=== PATIENT | male | born 2005 | race Caucasian/White ===

== ENCOUNTER 2023-01-05 23:27 | Emergency (ER) | payer BC ==
[2023-01-06 00:18] LABS: Absolute Lymphocytes (CBC) 3.1 K/uL (0.7-4.9); Hematocrit 42.4 % (39.6-49.0); Lymphocytes % 40.5 % (15.3-44.8); MCV 88.8 fL (80-100); MPV 8.8 fL (7.6-11.3); Platelets 166 thou/uL (152-406); RBC Red Blood Cell Count 4.77 M/uL (4.33-5.43)
[2023-01-06 00:38] LABS: ALT/SGPT 36 U/L (16-61); AST/SGOT 17 U/L (15-37); Albumin 3.9 g/dL (3.4-5.0); Alkaline Phosphatase 78 U/L (45-117); BUN Blood Urea Nitrogen 16 mg/dL (7-18); Bicarbonate 28 mEq/L (21-32); Bilirubin Total 0.2 mg/dL (0.2-1.0); Glomerular Filtration Rate 117 ml/min (=/>90); Glucose Level 99 mg/dL (74-106); NT PRO-BNP 18 pg/mL (<125); Potassium 3.7 mEq/L (3.5-5.1); Protein, Total 6.8 g/dL (6.4-8.2); Sodium Level 142 mEq/L (136-145); Troponin High Sensitivity 4.2 pg/mL (<58.9)
[2023-01-06 00:42] LABS: Bilirubin Direct < 0.1 mg/dL (0-0.2); Bilirubin Indirect, Calculated ND mg/dL (0.2-0.8)
--- NOTE | 2023-01-06 01:52 | ER ---
Nurse's Notes [facility] Name: Armen Randhawa Age: 17 yrs Sex: Male : 2005 Arrival Date: 01/05/2023 Time: 23:27 Bed 9 Private MD: Diagnosis: Chest pain, unspecified Presentation: 01/05 23:35 Chief complaint: Patient states: bilateral lower chest wall pain of 7 with SOB,onset pf1 2200. Patient stated was lying down with onset of symptoms. Coronavirus screen: Vaccine status: Patient reports being unvaccinated. Client denies travel out of the [place] in the last 14 days. Client presents with at least one sign or symptom that may indicate coronavirus-19. Ebola Screen: Patient negative for fever greater than or equal to 101.5 degrees Fahrenheit, and additional compatible Ebola Virus Disease symptoms. Initial Sepsis Screen: Does the patient meet any 2 criteria? No. Patient's initial sepsis screen is negative. Does the patient have a suspected source of infection? No. Patient's initial sepsis screen is negative. Risk Assessment: Do you want to hurt yourself or someone else? Patient reports no desire to harm self or others. 23:35 Method Of Arrival: Ambulatory pf1 23:35 Acuity: MELINA 3 pf1 23:36 Note Patient stated is currently taking Clindamycin 300mg for finger infection since pf1 Monday. Historical: - Allergies: 23:42 No Known Allergies; pf1 - PMHx: 23:42 None; pf1 - PSHx: 23:42 Tonsillectomy; Adenoid excision; right arm surgery; pf1 - Immunization history:: Adult Immunizations up to date, Client reports having NOT received the Covid vaccine. Last tetanus immunization: < 5 years ago Flu vaccine is up to date. - Social history:: Smoking status: Patient denies any tobacco usage or history of. Patient/guardian denies using alcohol, street drugs. - Family history:: not pertinent. - Hospitalizations: : No recent hospitalization is reported. Screenin/15 00:00 [facility] ED Fall Risk Assessment (Adult) History of falling in the last 3 months, pf1 including since admission No falls in past 3 months (0 pts) Confusion or Disorientation No (0 pts) Intoxicated or Sedated No (0 pts) Impaired Gait No (0 pts) Mobility Assist Device Used No (0 pt) Altered Elimination No (0 pt) Score/Fall Risk Level 0 - 2 = Low Risk Oriented to surroundings, Maintained a safe environment, Educated pt \T\ family on fall prevention, incl call for assistance when getting out of bed, Assessed \T\ reinforced patient's understanding of fall precautions, Provided non-skid footwear, Hourly rounding (assess needs \T\ fall precautionary measures) done, Used ambulatory aids as needed (educated on \T\ assisted with), Used gait belt as appropriate. Abuse screen: Denies threats or abuse. Nutritional screening: No deficits noted. Tuberculosis screening: No symptoms or risk factors identified. Assessment: 01/05 23:55 General: Appears in no apparent distress. comfortable, well groomed, well developed, pf1 Behavior is calm, cooperative, appropriate for age, quiet. 23:55 Pain: Complains of pain in chest Pain currently is 7 out of 10 on a pain scale. Pain pf1 began 2 hours ago. Also complains of shortness of breath. Neuro: No deficits noted. Level of Consciousness is awake, alert, obeys commands, Oriented to person, place, time, situation. Cardiovascular: Reports chest pain, shortness of breath. Respiratory: No deficits noted. Airway is patent Respiratory effort is even, unlabored, Respiratory pattern is regular, symmetrical. GI: No deficits noted. No signs and/or symptoms were reported involving the gastrointestinal system. : No deficits noted. No signs and/or symptoms were reported regarding the genitourinary system. EENT: No deficits noted. No signs and/or symptoms were reported regarding the EENT system. 23:55 Respiratory: Breath sounds are clear bilaterally. pf1 01/06 01:00 Reassessment: Patient appears in no apparent distress at this time. Patient and/or pf1 family updated on plan of care and expected duration. Pain level reassessed. Patient is alert, oriented x 3, equal unlabored respirations, skin warm/dry/pink. Patient states symptoms have improved. 02:00 Reassessment: Patient appears in no apparent distress at this time. Patient and/or pf1 family updated on plan of care and expected duration. Pain level reassessed. Patient is alert, oriented x 3, equal unlabored respirations, skin warm/dry/pink. Patient states feeling better. Patient states symptoms have improved. Vital Signs: 01/05 23:35 BP 133 / 73; Pulse 68; Resp 18; Temp 98.2; Pulse Ox 99% on R/A; Weight 95.25 kg; Height pf1 6 ft. 2 in. ; Pain 7/10; 01/06 00:54 BP 117 / 62; Pulse 64; Resp 18 S; Pulse Ox 100% on R/A; pf1 02:00 BP 118 / 64; Pulse 74; Resp 16; Pulse Ox 99% on R/A; Pain 0/10; pf1 01/05 23:35 Body Mass Index 26.96 (95.25 kg, 187.96 cm) pf1 01/05 23:35 Pain Scale: Adult pf1 02:00 Pain Scale: Adult pf1 ED Course: 01/05 23:29 Patient arrived in ED. jj6 23:42 Triage completed. pf1 23:43 Sudarshan Nur MD is Attending Physician. rn 23:55 Patient has correct armband on for positive identification. Bed in low position. Call pf1 light in reach. 23:55 Client placed on continuous cardiac and pulse oximetry monitoring. NIBP monitoring pf1 applied. environmental monitoring technician on. 23:55 Arm band placed on right wrist. pf1 01/06 00:00 Inserted saline lock: 20 gauge in right antecubital area, using aseptic technique. kb3 00:00 No provider procedures requiring assistance completed. Patient maintains SpO2 kb3 saturation greater than 95% on room air. 00:08 Basic Metabolic Panel Sent. kb3 00:08 CBC with Diff Sent. kb3 00:09 D-Dimer Sent. kb3 00:09 LFT's Sent. kb3 00:09 Troponin HS Sent. kb3 01:12 XRAY Chest (1 view) In Process Unspecified. EDMS 02:10 IV discontinued, intact, bleeding controlled, No redness/swelling at site. Pressure pf1 dressing applied. 02:10 Provided Education on: follow up and chest pain education. pf1 Administered Medications: No medications were administered Medication: 02:00 VIS not applicable for this client. pf1 Outcome: 01:52 Discharge ordered by . rn 02:10 Discharged to home ambulatory. pf1 02:10 Condition: improved 02:10 Discharge instructions given to patient, Instructed on discharge instructions, follow up and referral plans. Demonstrated understanding of instructions, follow-up care. 02:22 Patient left the ED. pf1 Signatures: Dispatcher [employer] Sudarshan Freitas MD MD rn Mónica [id number] Harriett Musa RN RN kb3 Sierra Mercado RN RN pf1 Corrections: (The following items were deleted from the chart) 02:18 01/05 23:55 Cardiovascular: Reports chest pain, shortness of breath, pf1 pf1
--- NOTE | 2023-01-06 01:53 | EDPHYS ---
Physician Documentation [facility] Name: Armen Randhawa Age: 17 yrs Sex: Male : 2005 Arrival Date: 01/05/2023 Time: 23:27 Bed 9 Private MD: ED Physician Sudarshan Nur HPI: 01/06 00:03 This 17 yrs old Male presents to ER via Ambulatory with complaints of Chest Pain, rn Shortness Of Breath. 00:03 The patient or guardian reports chest pain that is located primarily in the anterior rn chest wall, bilaterally. The pain does not radiate. Associated signs and symptoms: Pertinent positives: shortness of breath, Pertinent negatives: abdominal pain, cough, diaphoresis, palpitations, syncope, vomiting. The chest pain is described as sharp, squeezing, stabbing. Duration: The patient or guardian reports multiple episodes, that are intermittent. Modifying factors: The symptoms are alleviated by nothing. the symptoms are aggravated by deep breath. Severity of pain: At its worst the pain was moderate in the emergency department the pain has resolved. The patient has not experienced similar symptoms in the past. Patient reports chest pain to bilateral anterior lower rib area, happened at rest, no recent illness or trauma. No fever. No cough. Reports sharp stabbing and squeezing pain when taking a deep breath. Currently denies any pain or shortness of breath. Resolved upon arrival. Denies smoking or vaping. No abdominal pain or vomiting. No family history of early cardiac disease.. Historical: - Allergies: 01/05 23:42 No Known Allergies; pf1 - PMHx: 23:42 None; pf1 - PSHx: 23:42 Tonsillectomy; Adenoid excision; right arm surgery; pf1 - Immunization history:: Adult Immunizations up to date, Client reports having NOT received the Covid vaccine. Last tetanus immunization: < 5 years ago Flu vaccine is up to date. - Social history:: Smoking status: Patient denies any tobacco usage or history of. Patient/guardian denies using alcohol, street drugs. - Family history:: not pertinent. - Hospitalizations: : No recent hospitalization is reported. ROS: 01/06 00:03 Constitutional: Negative for fever, chills, and weight loss, Neck: Negative for injury, rn pain, and swelling, Cardiovascular: Positive for chest pain Respiratory: Positive for shortness of breath Abdomen/GI: Negative for abdominal pain, nausea, vomiting, diarrhea, and constipation, Back: Negative for injury and pain, MS/Extremity: Negative for injury and deformity, Skin: Negative for injury, rash, and discoloration, Neuro: Negative for headache, weakness, numbness, tingling, and seizure. Exam: 00:03 Constitutional: This is a well developed, well nourished patient who is awake, alert, rn and in no acute distress. Cardiovascular: Regular rate and rhythm. No murmur. No pulse deficits. Respiratory: Lungs have equal breath sounds bilaterally, clear to auscultation. No rales, rhonchi or wheezes noted. No increased work of breathing, no retractions or nasal flaring. Abdomen/GI: Soft, non-tender 00:05 ECG was reviewed by the Attending Physician. rn Vital Signs: 01/05 23:35 BP 133 / 73; Pulse 68; Resp 18; Temp 98.2; Pulse Ox 99% on R/A; Weight 95.25 kg; Height pf1 6 ft. 2 in. ; Pain 7/10; 01/06 00:54 BP 117 / 62; Pulse 64; Resp 18 S; Pulse Ox 100% on R/A; pf1 02:00 BP 118 / 64; Pulse 74; Resp 16; Pulse Ox 99% on R/A; Pain 0/10; pf1 01/05 23:35 Body Mass Index 26.96 (95.25 kg, 187.96 cm) pf1 01/05 23:35 Pain Scale: Adult pf1 02:00 Pain Scale: Adult pf1 MDM: 01/05 23:43 Patient medically screened. rn 01/06 01:51 Differential diagnosis: acute pericarditis, anxiety, chest wall pain, costochondritis, rn esophagitis, gastritis, gastroesophageal reflux disease (GERD), pericarditis, pleurisy, pneumonia, pneumothorax, pulmonary embolus. Data reviewed: vital signs, nurses notes, lab test result(s), EKG, radiologic studies, plain films, and as a result, I will discharge patient. Counseling: I had a detailed discussion with the patient and/or guardian regarding the historical points, exam findings, and any diagnostic results supporting the discharge/admit diagnosis, lab results, radiology results, the need for outpatient follow up, to return to the emergency department if symptoms worsen or persist or if there are any questions or concerns that arise at home. Response to treatment: the patient's symptoms have resolved after treatment, the patient's condition has returned to base line, the patient is now symptom free, and as a result, I will discharge patient. Special discussion: I discussed with the patient/guardian in detail that at this point there is no indication for admission to the hospital. It is understood, however, that if the symptoms persist or worsen the patient needs to return immediately for re-evaluation. ED course: No further episodes of chest pain since arrival. D-dimer negative. Troponin negative. Normal white blood cell count. Stable vital signs with normal oxygenation and afebrile. Will DC home with return precautions.. 01/05 23:49 Order name: Basic Metabolic Panel; Complete Time: 00:58 01/05 23:49 Order name: CBC with Diff; Complete Time: 00:58 01/05 23:49 Order name: D-Dimer; Complete Time: 00:58 01/05 23:49 Order name: LFT's; Complete Time: 00:01/05 23:49 Order name: Troponin HS; Complete Time: 00:58 01/05 23:49 Order name: BNP; Complete Time: 00:58 01/05 23:49 Order name: XRAY Chest (1 view) 01/05 23:49 Order name: EKG; Complete Time: 23:50 01/05 23:49 Order name: IV Start; Complete Time: 00:01/05 23:49 Order name: Cardiac monitoring; Complete Time: 23:59 01/05 23:49 Order name: EKG - Nurse/Tech; Complete Time: 23:59 01/05 23:49 Order name: Labs collected and sent; Complete Time: 00:08 01/05 23:49 Order name: O2 Per Protocol; Complete Time: 00:00 01/05 23:49 Order name: O2 Sat Monitoring; Complete Time: 00:00 rn EC:05 Rate is 58 beats/min. Rhythm is regular. QRS [place] is Normal. RI interval is normal. QRS rn interval is normal. QT interval is normal. No Q waves. T waves are Normal. No ST changes noted. Clinical impression: Sinus bradycardia. Interpreted by me. Reviewed by me. Administered Medications: No medications were administered Disposition Summary: 01/06/23 01:52 Discharge Ordered Location: Home rn Problem: new rn Symptoms: are resolved rn Condition: Stable rn Diagnosis - Chest pain, unspecified rn Followup: rn - With: Private Physician - When: As needed - Reason: Recheck today's complaints, Re-evaluation by your physician Discharge Instructions: - Discharge Summary Sheet rn - Nonspecific Chest Pain, Adult rn Forms: - Medication Reconciliation Form rn - Thank You Letter rn - Antibiotic collar turner - Prescription Opioid Use rn - Patient Portal Instructions rn - Leadership Thank You Letter rn Signatures: Dispatcher [employer] Sudarshan Freitas MD MD rn Finley, Pamala, RN RN pf1
[2023-01-06 02:30] VITALS: TEMP 98.2
[2023-01-06 02:32] VITALS: BP 118/64; O2SAT 99
--- NOTE | 2023-01-06 16:32 | EKG ---
Test Date: 2023-01-05 Test Time: 23:55:50 Stock Feeder: GLADIS MEASUREMENT RESULTS: Intervals: Rate: 58 SC: 162 QRSD: 100 QT: 376 QTc: 369 Steele: P: 33 SC: 162 QRS: 59 T: 39 INTERPRETIVE STATEMENTS: Sinus bradycardia Nonspecific ST abnormality Abnormal ECG No previous ECG available for comparison Electronically Signed On 01-06-23 16:31:24 CDT by Jose David
--- NOTE | 2023-01-06 18:26 | RAD REPORT ---
EXAM DESCRIPTION: RAD - Chest Single View - 01/06/2023 1:10 am CLINICAL HISTORY: 17 years Male CHEST PAIN COMPARISON: None FINDINGS: Lung volumes adequate. Cardiac silhouette is normal in size. No pneumothorax. No large pleural effusion. No focal consolidation. No acute bony finding. IMPRESSION: No acute cardiopulmonary findings. Electronically signed by: Naida Todd MD 01/06/2023 1:22 AM CDT Due to temporary technical issues with the PACS/Fluency reporting system, reports are being signed by the in house radiologists without review as a courtesy to insure prompt reporting. The interpreting radiologist is fully responsible for the content of the report.
== END 2023-01-06 02:22 | disposition home or self-care (01) ==
LOC: ER 23:27
DX: R07.89 Other chest pain (principal)
CPT/HCPCS: 36415; 71045; 80048; 80076; 83880; 84484; 85025; 85379; 93005; 99285